=== PATIENT | male | born 1935 | race Caucasian/White ===

== ENCOUNTER 2017-10-18 13:02 | Day surgery (SDC) | payer OTHER ==
[~2017-10-18] VITALS: Ht 185.4 cm; Wt 160.1 kg
[~2017-10-18 13:02] MED LIST: ALDACTONE25 MG PO; ALLOPURINOL100 MG PO; AMIODARONE HCL200 MG PO; BUMETANIDE1 MG PO; CALCITRIOL0.25 MCG PO; CARVEDILOL3.125 MG PO; DIOVAN320 MG PO; DOCUSATE SODIU100 MG PO; GLUCOSA-CHOND-1 EACH PO; HUMALOG100 UNIT/2 SC; HUMULIN 70100 UNIT/2 SC; HUMULIN 70100 UNIT/3 SC; LANTUS 3 M100 UNITS1 SC; LO-DOSE ASPIRIN81 M1 PO; LOVASTATIN40 MG PO; MIRALAX255 GM PO; POTASSIUM CHLO20 ME1 PO; PROBIOTIC 4X C1 EACH PO; SENTRY SENIOR1 EAC1 PO; VITAMIN D35000 UNIT PO; XARELTO20 MG PO
== END 2017-10-18 16:15 | disposition home or self-care (01) ==
LOC: CATH 13:02
PROVIDERS: Internal Medicine Cardiovascular Disease
DX: Z45.010 Encounter for checking and testing of cardiac pacemaker pulse generator [battery] (principal); I49.5 Sick sinus syndrome; I42.8 Other cardiomyopathies; I25.2 Old myocardial infarction; E78.5 Hyperlipidemia, unspecified; I48.1 Persistent atrial fibrillation; I48.92 Unspecified atrial flutter; E11.51 Type 2 diabetes mellitus with diabetic peripheral angiopathy without gangrene; Z79.4 Long term (current) use of insulin; G47.30 Sleep apnea, unspecified; N28.9 Disorder of kidney and ureter, unspecified; Z85.46 Personal history of malignant neoplasm of prostate; I25.10 Atherosclerotic heart disease of native coronary artery without angina pectoris; F17.290 Nicotine dependence, other tobacco product, uncomplicated; E78.2 Mixed hyperlipidemia; E66.9 Obesity, unspecified; Z68.42 Body mass index [BMI] 45.0-49.9, adult
CPT/HCPCS: 82948; C2621; J0690; J1200; J2250; J3010; S0020